=== PATIENT | female | born 1960 | race Hispanic/Latino ===

== ENCOUNTER → 2018-06-16 | Outpatient (CLI) | payer OTHER | END | disposition home or self-care (01) | LOC: RAH 15:24 | PROVIDERS: ATTEND Internal Medicine | DX: M16.11 Unilateral primary osteoarthritis, right hip (principal) | CPT/HCPCS: 73502 ==

== ENCOUNTER 2022-05-24 07:45 | Emergency (ER) | payer OTHER ==
[~2022-05-24] VITALS: Ht 152.4 cm; Wt 81.6 kg
[2022-05-24] MEDS ORDERED: 0.9%NACL 1000ML 1,000 ML IV ONE (08:30)
[2022-05-24 08:37] LABS: BASOPHILS % (AUTO) 0.5 % (0.0-5.0); EOSINOPHILS % (AUTO) 1.3 % (0.0-8.0); HEMATOCRIT 39.4 % (36-48); LYMPHOCYTES % (AUTO) 23.7 % (21.0-51.0); MEAN CORPUSCULAR HEMOGLOBIN 31.4 pg (27.0-33.0); MEAN CORPUSCULAR HGB CONC 33.8 g/dL (32.0-36.0); MEAN CORPUSCULAR VOLUME 93.1 fL (79-99); MONOCYTES % (AUTO) 6.5 % (3.0-13.0); NEUTROPHILS % (AUTO) 67.3 % (40.0-77.0); PLATELET COUNT (AUTO) 182 K/uL (130-400); RED BLOOD CELL COUNT(AUTO) 4.23 MIL/uL (4.00-5.50); RED CELL DISTRIBUTION WIDTH 11.9 % (11.0-15.5); WHITE BLOOD COUNT (AUTO) 5.5 K/uL (4.8-10.8)
[2022-05-24 08:52] LABS: ALBUMIN 3.5 g/dL (3.5-5.0); TOTAL PROTEIN, SERUM 8.1 g/dL (6.0-8.3)
[2022-05-24 08:53] LABS: APPEARANCE,URINE CLEAR (CLEAR); BILIRUBIN,URINE NEGATIVE (NEGATIVE); COLOR,URINE COLORLESS (YELLOW); GLUCOSE, URINE (UA) NEGATIVE (NEGATIVE); KETONES,URINE NEGATIVE (NEGATIVE); LEUKOCYTE ESTERASE ,URINE NEGATIVE Leu/uL (NEGATIVE); NITRATE,URINE NEGATIVE (NEGATIVE); OCCULT BLOOD,URINE NEGATIVE (NEGATIVE); PH,URINE 7.5 (5.0-8.0); PROTEIN,URINE NEGATIVE (NEGATIVE); UROBILINOGEN,URINE 0.2 mg/dL (0.2-1.0)
[2022-05-24 09:32] LABS: CREATININE 0.8 mg/dL (0.5-1.5)
[2022-05-24] MEDS ORDERED: PANTOPRAZOLE 40 MG/VIAL ONE (10:19)
[2022-05-24] MEDS ORDERED: PANT40TA55 PO (10:21)
[2022-05-24] MEDS ORDERED: METF-526 PO (10:41)
[2022-05-24 10:49] VITALS: BP 134/57
== END 2022-05-24 10:49 | disposition home or self-care (01) ==
LOC: EDH 08:07
DX: E86.0 Dehydration (principal); E03.9 Hypothyroidism, unspecified; Z88.0 Allergy status to penicillin
CPT/HCPCS: 99283; 96374; 96361; 80053; 83690; 85025; 81003; 36415; J7030; C9113

== ENCOUNTER 2022-08-22 12:00 | Emergency (ER) | payer OTHER ==
[~2022-08-22] VITALS: Ht 154.9 cm; Wt 79.4 kg
[~2022-08-22 12:00] MED LIST: METF-526 PO; PANT40TA55 PO
[2022-08-22 12:29] LABS: BASOPHILS % (AUTO) 0.3 % (0.0-5.0); HEMATOCRIT 39.6 % (36-48); LYMPHOCYTES % (AUTO) 17.3 % (21.0-51.0); MEAN CORPUSCULAR HEMOGLOBIN 31.4 pg (27.0-33.0); MEAN CORPUSCULAR HGB CONC 33.3 g/dL (32.0-36.0); MEAN CORPUSCULAR VOLUME 94.1 fL (79-99); MONOCYTES % (AUTO) 6.4 % (3.0-13.0); NEUTROPHILS % (AUTO) 74.7 % (40.0-77.0); PLATELET COUNT (AUTO) 176 K/uL (130-400); RED BLOOD CELL COUNT(AUTO) 4.21 MIL/uL (4.00-5.50); RED CELL DISTRIBUTION WIDTH 11.8 % (11.0-15.5); WHITE BLOOD COUNT (AUTO) 11.4 K/uL (4.8-10.8)
[2022-08-22 12:57] LABS: APPEARANCE,URINE CLEAR (CLEAR); BILIRUBIN,URINE NEGATIVE (NEGATIVE); COLOR,URINE COLORLESS (YELLOW); GLUCOSE, URINE (UA) NEGATIVE (NEGATIVE); KETONES,URINE NEGATIVE (NEGATIVE); LEUKOCYTE ESTERASE ,URINE NEGATIVE Leu/uL (NEGATIVE); NITRATE,URINE NEGATIVE (NEGATIVE); OCCULT BLOOD,URINE NEGATIVE (NEGATIVE); PH,URINE 5.5 (5.0-8.0); PROTEIN,URINE NEGATIVE (NEGATIVE); UROBILINOGEN,URINE 0.2 mg/dL (0.2-1.0)
[2022-08-22 12:57] LABS: CREATININE 0.9 mg/dL (0.5-1.5); POTASSIUM 3.7 mmol/L (3.5-5.1)
[2022-08-22 13:02] LABS: ALBUMIN 3.6 g/dL (3.5-5.0); TOTAL PROTEIN, SERUM 8.3 g/dL (6.0-8.3)
[2022-08-22] MEDS ORDERED: KETOROLAC 15MG/ML VIAL (15MG/ML) IV ONE (13:30)
[2022-08-22] MEDS ORDERED: 0.9% NACL 500ML IV.SOLN 500 ML IV ONE (13:30)
[2022-08-22] MEDS ORDERED: ACET-66 PO (14:16)
[2022-08-22] MEDS ORDERED: METR-172 PO (14:16)
[2022-08-22] MEDS ORDERED: CIPR-278 PO (14:16)
[2022-08-22 15:01] VITALS: BP 128/70
== END 2022-08-22 15:01 | disposition home or self-care (01) ==
LOC: EDH 12:00
DX: K57.92 Diverticulitis of intestine, part unspecified, without perforation or abscess without bleeding (principal); E03.9 Hypothyroidism, unspecified; Z79.899 Other long term (current) drug therapy; Z98.890 Other specified postprocedural states; Z88.0 Allergy status to penicillin
CPT/HCPCS: 99285; 74176; 96374; 96361; 80053; 83690; 85025; 81003; 36415; J7040; J1885

== ENCOUNTER 2024-10-05 20:26 | Emergency (ER) | payer BC ==
[~2024-10-05] VITALS: Ht 154.9 cm; Wt 72.6 kg
[~2024-10-05 20:26] MED LIST changes: +ACET-66 PO; +CIPR-278 PO; +METR-172 PO
[2024-10-05] MEDS: hydrOXYzine 50MG VIAL 50 MG/ML VIAL IM STA (20:32)
--- NOTE | 2024-10-05 20:40 | NUR ---
PT CARE ASSUMED AT THIS TIME
--- NOTE | 2024-10-05 20:43 | ERN ---
General Chief Complaint: Anxiety/Panic Attack Stated Complaint: ANXIETY Time Seen by MD: 20:28 Source: patient History of Present Illness Initial Comments Patient is a 64-year-old female coming in complaining of anxiety. Per patient she has been on their stress test she is taking care father. States that she has been having some dysuria but feels very anxious. Allergies: Coded Allergies: Penicillins (Unverified Allergy, Intermediate, RASH, 05/24/22) Home Meds Active Scripts Acetaminophen (Tylenol) 500 Mg Tab, 500 MG PO Q4PRN, #15 TAB Prov:MALI BARNES 08/22/22 Metronidazole (Metronidazole) 500 Mg Tablet, 500 MG PO BID, #20 TAB Prov:MALI BARNES 08/22/22 Ciprofloxacin HCl (Cipro) 500 Mg Tablet, 1 TAB PO BID for 10 Days, #20 TAB 0 Refills Prov:MALI BARNES 08/22/22 Metformin HCl (Metformin HCl ER) 500 Mg Tab.er.24, 500 MG PO BID for 10 Days, #20 BOTTLE Prov:EMMANUEL MARIE MD 05/24/22 Pantoprazole Sodium (Protonix) 40 Mg Ectab, 40 MG PO DAILY for 30 Days, #30 TAB.EC Prov:EMMANUEL MARIE MD 05/24/22 Past Medical History Past Medical History: Diabetes-Type II, High Cholesterol, Hypothyroid, Liver Disease Past Surgical History: Other Surgical History Other: PARTIAL HYSTERECTOMY ROS Dictation CONSTITUTIONAL: No chills, no fever, no weakness, no diaphoresis, no malaise. HEAD/FACE: No signs of trauma. EENT: No eye pain, no blurred vision, no tearing, no double vision, no ear pain, no ear discharge, no nose pain, no nasal congestion, no throat pain, no throat swelling, no mouth pain. RESPIRATORY: No cough, no orthopnea, no SOB, no stridor, no wheezing. CARDIOVASCULAR: No chest pain, no edema, no palpitations, no syncope. GASTROINTESTINAL/ABDOMINAL: No abdominal pain, no constipation, no diarrhea, no nausea, no vomiting. GENITOURINARY: No abnormal discharge, no dysuria, no frequent urination, no hematuria. No complaints of pain in the genitals. MUSCULOSKELETAL: No back pain, no gout, no joint pain, no joint swelling, no muscle pain, no muscle stiffness, no neck pain. INTEGUMENTARY: No change in color, no change in hair/nails, no dryness, no lesion, no lumps, no rash. NEUROLOGICAL/PSYCH: No anxiety, not depressed, no emotional problem, no headache, no numbness, no pre-existing deficit, no history of seizures, no tremors, no weakness. HEMATOLOGIC/LYMPHATIC: Not anemic, no history of blood clots, no apparent bleeding, no bruising, glands not swollen. All Systems Negative, Except as Noted. Physical Exam Physical Exam Dictation VITAL SIGNS: Reviewed. GENERAL APPEARANCE: Alert, oriented x3, no acute distress, obese. HEAD AND FACE: Non-traumatic. EYES: PERRL, pink conjunctivas, eyelid no trauma, anterior chamber clear. EARS: Pinnas intact and no signs of trauma or erythema. Ear canals clear and no discharge. TMs no erythema. NOSE: No discharge, no bleeding. OROPHARYNX: Mouth normal, teeth no caries, tongue pink. Pharynx clear, no erythema. Tonsils no exudates, no abscesses noted. Mucous membrane moist. NECK: Supple, non-tender, no thyromegaly, no masses, no JVD, no bruits. BREAST: Deferred. CHEST: No tenderness, no crepitus, no paradoxical movement, no retractions. LUNGS: Clear, well-ventilated, symmetric, no rales, no wheezing, no rhonchi, no stridor, good breath sounds bilaterally. HEART: Regular rate, regular rhythm, no murmur, no gallops. VASCULAR: No peripheral edema. ABDOMEN: Soft, positive bowel sounds, nondistended, no guarding, nontender, no rebound, no masses no hepatomegaly, no splenomegaly, no Marion's sign, no hernias. RECTAL: Deferred. GENITAL: Deferred. NEUROLOGICAL: Normal speech, gross motor function intact, gross sensory function intact. MUSCULOSKELETAL: Neck nontender, full range of motion, back nontender, full range of motion. EXTREMITIES: Nontender, full range of motion. SKIN: Color pink, dry, no turgor, no rash, no lacerations, no abrasions, no contusions. LYMPHATICS: Deferred. Results Laboratory and Microbiology Lab and Micro Result Laboratory Tests Test 10/05/24 20:50 10/05/24 21:14 Urine Color COLORLESS (YELLOW) Urine Appearance CLEAR (CLEAR) Urine pH 5.0 (5.0-8.0) Urine Specific Purlear 1.011 (1.001-1.031) Urine Protein NEGATIVE mg/dL (NEGATIVE) Urine Glucose (UA) >=1000 mg/dL (NEGATIVE) H Urine Ketones NEGATIVE mg/dL (NEGATIVE) Urine Occult Blood NEGATIVE (NEGATIVE) Urine Nitrate NEGATIVE (NEGATIVE) Urine Bilirubin NEGATIVE mg/dL (NEGATIVE) Urine Urobilinogen 0.2 mg/dL (0.2-1.0) Urine Leukocyte Esterase NEGATIVE Yesenia/uL Urine RBC 0-1 /HPF (0-1) Urine WBC 2-5 /HPF (0-1) H Urine Squamous Epithelial Cells RARE /HPF (0-2) Urine Bacteria FEW /HPF (None Seen) White Blood Count 5.7 K/uL (4.8-10.8) Red Blood Count 4.03 MIL/uL (4.00-5.50) Hemoglobin 12.8 g/dL (12.0-16.0) Hematocrit 37.3 % (36-48) Mean Corpuscular Volume 92.6 fL (79-99) Mean Corpuscular Hemoglobin 31.8 pg (27.0-33.0) Mean Corpuscular Hemoglobin Concent 34.3 g/dL (32.0-36.0) Red Cell Distribution Width 11.9 % (11.0-15.5) Platelet Count 161 K/uL (130-400) Mean Platelet Volume 11.0 fL (7.5-10.5) H Immature Granulocyte % (Auto) 0.5 % (0-1) Neutrophils (%) (Auto) 58.2 % (40.0-77.0) Lymphocytes (%) (Auto) 30.3 % (21.0-51.0) Monocytes (%) (Auto) 8.3 % (3.0-13.0) Eosinophils (%) (Auto) 1.6 % (0.0-8.0) Basophils (%) (Auto) 1.1 % (0.0-5.0) Neutrophils # (Auto) 3.3 K/uL (1.8-7.7) Lymphocytes # (Auto) 1.7 K/uL (1.0-4.8) Monocytes # (Auto) 0.5 K/uL (0.1-1.0) Eosinophils # (Auto) 0.09 K/uL (0.00-0.70) Basophils # (Auto) 0.06 K/uL (0.00-0.20) Absolute Immature Granulocyte (auto 0.03 K/uL (0-1) Nucleated Red Blood Cells 0.0 % (0.0-0.19) Sodium Level 137 mmol/L (136-145) Potassium Level 3.9 mmol/L (3.5-5.1) Chloride Level 102 mmol/L (101-111) Carbon Dioxide Level 28 mmol/L (21-32) Blood Urea Nitrogen 12 mg/dL (7-18) Creatinine 0.8 mg/dL (0.5-1.0) Glomerular Filtration Rate Calc 83 mL/min (>90) Random Glucose 301 mg/dL (70-105) H Total Calcium 9.3 mg/dL (8.5-10.1) EKG/XRAY/US/CT/MRI EKG Comment 10/05/2024 time 8:54 p.m. Ventricular rate 64 Sinus rhythm [place] [address] wave elevation or depression MDM MDM: Differential diagnosis: Anxiety, stress related, dehydration, gerd Rationale: Tests considered and ordered secondary to shared decision making include: Previous outside records reviewed: Old ER visits. Risk of complication and/or morbidity or mortality of patient management: None Patient is a 64-year-old female coming in to be evaluated for multiple complaints. Patient states that she feels very anxious he has been under lot of stressors at home. She also states that she feels a little dehydrated and she had a hot dog and feels some indigestion. EKG laboratory workup negative for acute findings elevated glucose was seen I did preparole counseling aide her on proper glucose monitoring. Patient will be discharged in stable condition. ED Course Orders Procedure Category Date Status Time 12 Lead Ekg Tracing- EKG 10/05/24 Logged Technical 20:32 Urinalysis LAB 10/05/24 Complete W/Microscopic 20:32 Hydroxyzine 50mg Vial PHA 10/05/24 Complete (Atarax 50mg Inj) 20:32 Cbc With Differential LAB 10/05/24 Complete 21:03 Basic Metabolic Panel LAB 10/05/24 Complete 21:03 0.9%Nacl 1000ml (Ns PHA 10/05/24 Complete 1000ml) 21:30 Current Medications Medications (Trade) Dose Ordered Sig/Alex Route PRN Reason Start Time Stop Time Status Last Admin Dose Admin Hydroxyzine HCl (ATArax 50MG INJ) 25 mg ONCE STAT IM 10/05/24 20:32 10/05/24 20:33 DC Sodium Chloride 1,000 ml @ 0 mls/hr ONCE ONCE IV 10/05/24 21:30 10/05/24 21:31 DC 10/05/24 21:47 Vital Signs Date Time Temp Pulse Resp B/P (MAP) Pulse Ox O2 Delivery O2 Flow Rate FiO2 10/05/24 20:28 98.1 75 18 126/64 97 Room Air 0 DX & DISP Disposition: Discharge Departure Impression: Primary Impression: Dehydration Additional Impressions: Diabetes mellitus with hyperglycemia, GERD (gastroesophageal reflux disease) Condition: Stable Additional Instructions: FOLLOW-UP WITH PRIMARY CARE PROVIDER IN 1 TO 2 DAYS. TAKE MEDICATIONS DIRECTED HERE IN THE EMERGENCY ROOM. OKAY TO CONTINUE HOME MEDICATIONS UNLESS OTHERWISE DISCUSSED DURING YOUR VISIT IN THE EMERGENCY ROOM TODAY. RETURN TO Y OUR NEAREST EMERGENCY ROOM IF SYMPTOMS WORSEN OR IF THERE IS NO IMPROVEMENT. CALL 911 IF YOU NEED IMMEDIATE ASSISTANCE. TAKE TYLENOL [id number] NEEDED AND IF NO CONTRAINDICATIONS ARE PRESENT. INCREASE ORAL HYDRATION. A WOUND CULTURE OR URINE CULTURE WAS ORDERED HERE IN THE EMERGENCY ROOM DEPARTMENT PLEASE FOLLOW-UP WITH PRIMARY CARE PROVIDER AND ADVISE THEM TO GET REPEAT PORTS FROM OUR FACILITY. IF YOU HAD ANY COMPA WRAP/SPLINTS THAT WERE APPLIED HERE, PLEASE DO NOT REMOVE THEM UNTIL YOU SEE YOUR PRIMARY CARE OR SPECIALTY. Referrals: Referrals: ATUL BAXTER NP (PCP) Time of Disposition: 21:50 EMMANUEL MARIE MD October 05, 2024 20:43
[2024-10-05 20:59] LABS: APPEARANCE,URINE CLEAR (CLEAR); BACTERIA,URINE FEW /HPF (None Seen); BILIRUBIN,URINE NEGATIVE (NEGATIVE); COLOR,URINE COLORLESS (YELLOW); GLUCOSE, URINE (UA) >=1000 mg/dL (NEGATIVE); KETONES,URINE NEGATIVE (NEGATIVE); LEUKOCYTE ESTERASE ,URINE NEGATIVE Leu/uL (NEGATIVE); MUCUS,URINE RARE LPF (None Seen); NITRATE,URINE NEGATIVE (NEGATIVE); OCCULT BLOOD,URINE NEGATIVE (NEGATIVE); PROTEIN,URINE NEGATIVE (NEGATIVE); RBC,URINE 0-1 /HPF (0-1); SQUAMOUS EPITHELIAL CELL,UR RARE /HPF (0-2); UROBILINOGEN,URINE 0.2 mg/dL (0.2-1.0)
[2024-10-05 21:34] LABS: BASOPHILS # (AUTO) 0.06 K/uL (0.00-0.20); BASOPHILS % (AUTO) 1.1 % (0.0-5.0); EOSINOPHILS # (AUTO) 0.09 K/uL (0.00-0.70); EOSINOPHILS % (AUTO) 1.6 % (0.0-8.0); HEMATOCRIT 37.3 % (36-48); IMMATURE GRANULOCYTE ABSOLUTE 0.03 K/uL (0-1); LYMPHOCYTES # (AUTO) 1.7 K/uL (1.0-4.8); LYMPHOCYTES % (AUTO) 30.3 % (21.0-51.0); MEAN CORPUSCULAR HEMOGLOBIN 31.8 pg (27.0-33.0); MEAN CORPUSCULAR HGB CONC 34.3 g/dL (32.0-36.0); MEAN CORPUSCULAR VOLUME 92.6 fL (79-99); MONOCYTES # (AUTO) 0.5 K/uL (0.1-1.0); MONOCYTES % (AUTO) 8.3 % (3.0-13.0); NEUTROPHILS # (AUTO) 3.3 K/uL (1.8-7.7); NEUTROPHILS % (AUTO) 58.2 % (40.0-77.0); PLATELET COUNT (AUTO) 161 K/uL (130-400); RED BLOOD CELL COUNT(AUTO) 4.03 MIL/uL (4.00-5.50); RED CELL DISTRIBUTION WIDTH 11.9 % (11.0-15.5); WHITE BLOOD COUNT (AUTO) 5.7 K/uL (4.8-10.8)
[2024-10-05 21:41] LABS: CREATININE 0.8 mg/dL (0.5-1.0); POTASSIUM 3.9 mmol/L (3.5-5.1)
[2024-10-05] MEDS: 0.9%NACL 1000ML 1,000 ML IV ONE (21:47)
[2024-10-05 22:55] VITALS: BP 118/68; PULSE 74; RESP 16; TEMP 98; O2SAT 100
[2024-10-05] MEDS: LIDOCAINE HCL 2% VISCOUS 15 ML UDCUP PO ONE (22:55)
[2024-10-05] MEDS: MAG/ALUM/SIMETH 30 ML UDCUP PO ONE (22:55)
--- NOTE | 2024-10-06 06:34 | EKG ---
[facility] Test Date: 2024-10-05 Test Time: 20:54:55 Pat Name: JORGITO COLMENARES Department: ED Room: Gender: F Supervisor Enrobing: [id number] : [id number] Requested By: EMMANUEL MARIE Order Number: [id number] Reading MD: Justin Roach Measurements Intervals [place] Rate: 64 P: 18 [place]: 139 QRS: 28 QRSD: 85 T: 28 QT: 422 QTc: 434 Interpretive Statements Sinus rhythm No previous ECG available for comparison Electronically Signed On 10-06-2024 17:33:05 CDT by Justin Roach Please click the below link to view image of tracing.
== END 2024-10-05 23:00 | disposition home or self-care (01) ==
LOC: EDH 20:26
DX: E86.0 Dehydration (principal); E11.65 Type 2 diabetes mellitus with hyperglycemia; K21.9 Gastro-esophageal reflux disease without esophagitis; E03.9 Hypothyroidism, unspecified; E78.00 Pure hypercholesterolemia, unspecified; Z79.84 Long term (current) use of oral hypoglycemic drugs; Z79.899 Other long term (current) drug therapy; Z88.0 Allergy status to penicillin
CPT/HCPCS: 99284; 96360; 80048; 85025; 81001; 36415; 93005; J3410; J7030